=== PATIENT | male | born 1970 | race Caucasian/White ===

== ENCOUNTER 2016-07-05 23:00 | Inpatient (IN) | payer BC, OTHER | END 2016-07-07 10:48 | disposition home or self-care (01) | DRG 392 | LOC: ER 23:00 → MS 07-06 01:01 | PROVIDERS: ADMIT Family Medicine | DX: K57.92 Diverticulitis of intestine, part unspecified, without perforation or abscess without bleeding (principal); R10.32 Left lower quadrant pain; I10 Essential (primary) hypertension; Z98.890 Other specified postprocedural states; Z83.3 Family history of diabetes mellitus; Z82.49 Family history of ischemic heart disease and other diseases of the circulatory system; Z84.89 Family history of other specified conditions; H92.02 Otalgia, left ear; Z88.1 Allergy status to other antibiotic agents; Z79.899 Other long term (current) drug therapy ==